=== PATIENT | female | born 1995 | race Caucasian/White ===

== ENCOUNTER 2019-05-22 08:46 | Outpatient (CLI) | payer OTHER ==
--- NOTE | 2019-05-22 09:59 | RAD ---
Exam: Swallow: HISTORY: Dysphasia FINDINGS: Patient demonstrated normal swallowing function area no evidence for esophageal stricture ulcer or ma ss. No evidence for significant gastroesophageal reflux demonstrated. Fluoroscopy time 2.1 minutes. Dose 6.72 Gy CM ^2 IMPRESSION: Unremarkable barium swallow. No evidence for gastroesophageal reflux or other acute process.
== END 2019-05-22 08:47 | disposition home or self-care (01) ==
LOC: RAD 08:46
PROVIDERS: ATTEND Internal Medicine Endocrinology, Diabetes & Metabolism
DX: R47.02 Dysphasia (principal)
CPT/HCPCS: 74220

== ENCOUNTER 2020-05-26 15:26 | Outpatient (CLI) | payer BC ==
--- NOTE | 2020-05-26 16:23 | ULT ---
EXAM: Abdominal ultrasound PROVIDED CLINICAL HISTORY: Abdominal pain COMPARISON: None FINDINGS: Visualized portions of the pancreas, IVC and aorta appear normal. Liver demonstrates no mass or intrahepatic biliary ductal dilatation. Common duct is nondilated. Gallbladder demonstrates no stones, wall thickening or pericholecystic fluid. Kidneys demonstrate no hydronephrosis or solid mass. Spleen is not enlarged and demonstrates no focal abnormality. IMPRESSION: Unremarkable abdominal ultrasound.
== END 2020-05-26 15:27 | disposition home or self-care (01) ==
LOC: SCSULT 15:26
PROVIDERS: ATTEND Internal Medicine Gastroenterology
DX: E06.3 Autoimmune thyroiditis (principal); R14.0 Abdominal distension (gaseous); K92.1 Melena; R30.0 Dysuria; R10.32 Left lower quadrant pain
CPT/HCPCS: 93975

== ENCOUNTER 2021-04-04 07:49 | Outpatient (CLI) | payer BC | END 2021-04-04 07:50 | disposition home or self-care (01) | LOC: NM 07:49 | PROVIDERS: ATTEND Internal Medicine Gastroenterology | DX: R19.8 Other specified symptoms and signs involving the digestive system and abdomen (principal) | CPT/HCPCS: 78264; A9541 ==

== ENCOUNTER 2021-08-29 15:30 | Outpatient (CLI) | payer BC ==
[2021-08-29 19:46] LABS: #Basophils 0.1 thou/uL (0.0-0.2); #Eosinphils 0.2 thou/uL (0.0-0.7); #Lymphocytes 2.3 thou/uL (1.20-3.40); #Monocytes 0.4 thou/uL (0.11-0.59); #Neutrophils 4.2 thou/uL (1.40-6.50); %Basophils 0.7 % (0.0-1.0); %Eosinophils 2.6 % (0.0-10.0); %Monocytes 5.2 % (0.0-10.0); %Neutrophils 59.5 % (42.0-75.0); Hemoglobin 14.1 g/dL (12.0-16.0); Mean Corpuscular HGB CONC 34.1 g/dL (32.0-36.0); Mean Corpuscular Hemoglobin 30.5 pg (27.0-31.0); Mean Corpuscular Volume 89.4 fL (78.0-98.0); Mean Platelet Volume 7.9 fL (7.4-10.4); Platelet Count 275 thou/uL (130-400); RBC Distribution Width 11.3 % (11.5-14.5); Red Blood Cell (RBC) Count 4.62 mill/uL (4.20-5.40); White Blood Cell (WBC) Count 7.1 thou/uL (4.8-10.8)
[2021-08-29 20:05] LABS: BHCG - Serum Negative (NEGATIVE); Pregs Control Background? CLEAR/WHITE (CLR/WHITE); Pregs Control Bar Appear? YES (CONTROL BAR)
[2021-08-29 20:10] LABS: ALT (SGPT) 35 U/L (8-55); AST (SGOT) 35 U/L (5-34); Albumin 4.5 g/dL (3.5-5.0); Alkaline Phosphatase 71 U/L (40-110); Anion Gap 16 mmol/L (10-20); BUN (Urea Nitrogen) 9 mg/dL (7.0-18.7); Bilirubin, Total 0.6 mg/dL (0.2-1.2); Calc. Creatinine Clearance 0 mL/min (70-130); Calcium 9.5 mg/dL (7.8-10.44); Carbon Dioxide 21 mmol/L (22-29); Chloride 104 mmol/L (98-107); Globulin 3.4 g/dL (2.4-3.5); Glucose 126 mg/dL (70-105); Potassium 4.2 mmol/L (3.5-5.1); Protein, Total 7.9 g/dL (6.0-8.3); Sodium 137 mmol/L (136-145)
[2021-08-29 20:49] LABS: Free T4 (Free Thyroxine) 0.85 ng/dL (0.70-1.48); Thyroid Stimulating Hormone 1.3368 uIU/mL (0.35-4.94)
== END 2021-08-29 15:31 | disposition home or self-care (01) ==
LOC: SCSRAD 15:30
PROVIDERS: ATTEND Family Medicine
DX: R14.0 Abdominal distension (gaseous) (principal); R11.0 Nausea; E06.3 Autoimmune thyroiditis; R61 Generalized hyperhidrosis; N91.2 Amenorrhea, unspecified; I10 Essential (primary) hypertension
CPT/HCPCS: 36415; 74022; 80053; 84439; 84443; 84481; 84703; 85025

== ENCOUNTER 2023-07-20 10:40 | Outpatient (CLI) | payer BC | END 2023-07-20 10:41 | disposition home or self-care (01) | LOC: SCSRAD 10:40 | PROVIDERS: ATTEND Family Medicine | DX: R07.89 Other chest pain (principal) | CPT/HCPCS: 71046 ==

== ENCOUNTER 2023-07-26 11:47 | Outpatient (CLI) | payer BC | END 2023-07-26 11:48 | disposition home or self-care (01) | LOC: SCSMRI 11:47 | PROVIDERS: ATTEND Family Medicine | DX: R59.0 Localized enlarged lymph nodes (principal); N85.8 Other specified noninflammatory disorders of uterus; N89.8 Other specified noninflammatory disorders of vagina; D25.9 Leiomyoma of uterus, unspecified | CPT/HCPCS: 72197 ==